=== PATIENT | male | born 2000 | race Caucasian/White ===

== ENCOUNTER 2022-01-15 10:30 | Outpatient (CLI) | payer OTHER | END 2022-01-15 10:31 | disposition EMS.NT | LOC: EMS 10:30 | DX: F41.9 Anxiety disorder, unspecified (principal) ==

== ENCOUNTER 2022-01-15 11:53 | Emergency (ER) | payer OTHER ==
[2022-01-15 12:09] VITALS: BP 120/78
--- NOTE | 2022-01-15 12:16 | ED Physician Documentation ---
PD HPI MHE - Stated complaint Stated Complaint: ANXIETY - Chief complaint Chief Complaint: MHE - History obtained from History obtained from: Patient, EMS - History of Present Illness Primary symptom: Anxiety Timing - onset: Today (he states he has general anxiety. He had some cannibis earlier and also took 40 mg of Ritalin from his friend. This made him much more anxious as it is taking effect.) Contributing factors: Substance abuse - drugs. No: Substance abuse - ETOH Similar symptoms before: Diagnosis (anxiety and PTSD.) Recently seen: Not recently seen Review of Systems Constitutional: denies: Fever, Chills, Fatigue Ears: denies: Ear pain Cardiac: reports: Chest pain / pressure, Palpitations. denies: Pedal edema, Calf pain Respiratory: denies: Dyspnea GI: denies: Abdominal Pain PD PAST MEDICAL HISTORY - Past Medical History Cardiovascular: None Respiratory: None Psych: Anxiety, Post traumatic stress disorder, Other (poor sleep) Musculoskeletal: None - Allergies Allergies/Adverse Reactions: Allergies Allergy/AdvReac Type Severity Reaction Status Date / Time No Known Drug Allergies Allergy Verified 01/15/22 12:09 PD ED PE NORMAL - Vitals Vital signs reviewed: Yes - General General: Alert and oriented X 3, Well developed/nourished, Other (seems shaky and anxious. ) - HEENT HEENT: Atraumatic, Moist mucous membranes - Neck Neck: Supple, no meningeal sign, Thyroid normal - Cardiac Cardiac: RRR, No murmur - Respiratory Respiratory: Clear bilaterally - Derm Derm: Normal color, Warm and dry - Extremities Extremities: No edema, No calf tenderness / cord - Neuro Neuro: Alert and oriented X 3, No motor deficit, Normal speech Results - Vitals Vitals: Oxygen O2 Source Room air - Labs Labs: Laboratory Tests 01/15/22 12:10 Urine Opiates Screen NEGATIVE Ur Oxycodone Screen NEGATIVE Urine Methadone Screen NEGATIVE Ur Propoxyphene Screen NEGATIVE Ur Barbiturates Screen NEGATIVE Ur Tricyclics Screen NEGATIVE Ur Phencyclidine Scrn NEGATIVE Ur Amphetamine Screen NEGATIVE U Methamphetamines Scrn NEGATIVE U Benzodiazepines Scrn NEGATIVE Urine Cocaine Screen NEGATIVE U Cannabinoids Screen POSITIVE H PD MEDICAL DECISION MAKING - ED course Complexity details: re-evaluated patient (he improved enough to want to go home. Feels more comfortable and requests discharge. ), considered differential (seems panic attack. He is leary of new meds. He declined meds and wanted to just wait to improve. ), d/w patient Departure - Departure Disposition: 01 Home, Self Care Clinical Impression: Anxiety, Anxiety attack Condition: Stable Record reviewed to determine appropriate education?: Yes Instructions: ED Panic Attack Follow-Up: [facility] [Provider Group] Comments: Stay well-hydrated. Of course avoiding nonprescribed/recreational medication can help reduce anxiety episodes. No excess alcohol. Regular diet and some regular daily exercise/activity can help with anxiety as well. Follow-up with counseling regarding biofeedback or feedback techniques to help with panic episodes. Follow-up with your primary care provider as well. Return as needed. Discharge Date/Time: 01/15/22 13:39
[2022-01-15] MEDS ORDERED: diazePAM 5 MG TABLET PO STA (12:42)
[2022-01-15 12:50] LABS: MUDS CUTOFF CONCENTRATIONS CUTOFF CONC BELOW:
[2022-01-15 13:03] LABS: AMPHETAMINE SCREEN,URINE NEGATIVE (NEGATIVE); BARBITURATE SCREEN,UR NEGATIVE (NEGATIVE); BENZODIAZEPINES SCREEN, URINE NEGATIVE (NEGATIVE); COCAINE SCREEN URINE NEGATIVE (NEGATIVE); METHADONE SCREEN, URINE NEGATIVE (NEGATIVE); METHAMPHETAMINES SCREEN, URINE NEGATIVE (NEGATIVE); OPIATE SCREEN, URINE NEGATIVE (NEGATIVE); OXYCODONE SCREEN, URINE NEGATIVE (NEGATIVE); PROPOXYPHENE SCREEN, URINE NEGATIVE (NEGATIVE); THC CANNABINOID SCREEN, URINE POSITIVE (NEGATIVE); TRICYCLIC ANTIDEPRESSANT,URINE NEGATIVE (NEGATIVE)
== END 2022-01-15 13:39 | disposition home or self-care (01) ==
LOC: ED 11:53
DX: F41.9 Anxiety disorder, unspecified (principal)
CPT/HCPCS: 80306; 99283; A9270

== ENCOUNTER 2022-02-06 05:18 | Emergency (ER) | payer OTHER ==
--- NOTE | 2022-02-06 05:51 | ED Physician Documentation ---
History of Present Illness - Stated complaint Stated Complaint: LOW HEART RATE - Chief complaint Chief Complaint: Cardiac - History obtained from History obtained from: Patient - Additonal information Additional information: Patient is a 21-year-old male with no significant past medical history presenting for evaluation of feeling that his heart was beating slow and possibly having a syncopal episode. Patient reports that he was laying in bed and felt that his heartbeat was really low. He did not count his pulse. He reports feeling dizzy and lightheaded but states he always feels dizzy and lig htheaded and thinks he may have briefly passed out but is unsure for how long. He denies headache, nausea, vomiting, diarrhea, chest pain, difficulty breathing. He currently feels okay and does not feel that his heart is beating slow.He reports having chest pain daily for the last year.Patient reports history of PTSD as well as other "mental problems" but is unable to get a timely appointment for his psychiatrist or PCP. Patient denies suicidal or homicidal thoughts.Patient does admit to drinking part of a for local last night as well as marijuana use. He denies excess caffeine use. Review of Systems Constitutional: denies: Fever Nose: denies: Congestion Throat: denies: Sore throat Cardiac: reports: Chest pain / pressure Respiratory: denies: Dyspnea, Cough GI: denies: Abdominal Pain : denies: Dysuria Musculoskeletal: denies: Back pain Neurologic: denies: Headache PD PAST MEDICAL HISTORY - Past Medical History Past Medical History: Yes Cardiovascular: None Respiratory: None Psych: Anxiety, Post traumatic stress disorder, Other Musculoskeletal: None - Past Surgical History Past Surgical History: No - Allergies Allergies/Adverse Reactions: Allergies Allergy/AdvReac Type Severity Reaction Status Date / Time No Known Drug Allergies Allergy Verified 02/06/22 05:25 - Social History Does the pt smoke?: No Smoking Status: Never smoker Does the pt drink ETOH?: No Substance Use and Type: Marijuana - Immunizations Immunizations: TDAP >10years/unknown PD ED PE NORMAL - General General: Alert and oriented X 3, No acute distress, Well developed/nourished - HEENT HEENT: Atraumatic, Moist mucous membranes - Neck Neck: Supple, no meningeal sign - Cardiac Cardiac: RRR, No murmur, Strong equal pulses - Respiratory Respiratory: No respiratory distress, Clear bilaterally - Abdomen Abdomen: Normal bowel sounds, Soft, Non tender, Non distended - Back Back: No spinal TTP - Derm Derm: Warm and dry - Extremities Extremities: No edema, No calf tenderness / cord - Neuro Neuro: Alert and oriented X 3, ironer hand 2-12 intact, No motor deficit, Normal speech Results - Vitals Vitals: Vital Signs - 24 hr 02/06/22 02/06/22 05:26 06:47 Temperature 36.4 C L 36.5 C Heart Rate 87 79 Respiratory 24 18 Rate Blood Pressure 129/86 H 122/81 H O2 Saturation 100 99 Oxygen O2 Source Room air - EKG (time done) 0522 Rate: Rate (enter#) (87) Rhythm: NSR Hope: Normal Intervals: Other (QTC 481) Ischemia: No: ST elevation c/w ischemia, ST depression, Hyperacute T waves Compare to prior EKG: Old EKG unavailable - Labs Labs: Laboratory Tests 02/06/22 02/06/22 05:42 05:42 WBC 7.8 RBC 4.77 Hgb 14.0 Hct 41.5 L MCV 87.0 MCH 29.4 MCHC 33.7 RDW 13.8 Plt Count 291 MPV 9.7 Neut # (Auto) 4.4 Lymph # (Auto) 2.4 Calloway # (Auto) 0.7 Eos # (Auto) 0.3 Baso # (Auto) 0.1 Absolute Nucleated RBC 0.00 Nucleated RBC % 0.0 Sodium 139 Potassium 3.3 L Chloride 102 Carbon Dioxide 29 Anion Gap 8.0 BUN 10 Creatinine 0.8 Estimated GFR (MDRD) 125 Glucose 98 Calcium 9.1 Magnesium 2.4 PD MEDICAL DECISION MAKING - ED course Complexity details: reviewed results, re-evaluated patient ED course: Pt evaluated after possible syncopal episode. EKG reassuring, labs reviewed. No concerning history for cardiac ischemia, seizure/stroke/ICH. No arrythmias noted on monitor. 0636 - Patient has been feeling well since being in the emergency department. Reviewed his labs, EKG and chest x-ray. He feels comfortable plan for discharge and will follow up with his PCP. Departure - Departure Disposition: 01 Home, Self Care Clinical Impression: Hypokalemia Syncope Qualifiers: Syncope type: unspecified Qualified Code(s): R55 - Syncope and collapse Condition: Stable Instructions: ED Fainting Unkn Cause Comments: You were evaluated after a fainting spell. Your EKG shows a Normal rhythm. Your labs were checked and your potassium was just the slightest bit low. You were given a potassium pill. Please make sure you are taking care of yourself by eating and drinking well. Your chest x-ray was clear with no signs of pneumonia or an enlarged heart. Is unclear as to what may have caused her symptoms but you are safe to be discharged from the emergency department at this time. Please call your primary care doctor today to arrange for close follow- up. I would recommend avoiding the use of any drugs or intoxicating agents Such as alcohol or marijuana or any illicit substances To make sure that they are not contributing or worsening any of your symptoms. Discharge Date/Time: 02/06/22 06:47
[2022-02-06 06:15] LABS: BASOPHILS # (AUTO) 0.1 10^3/uL (0.0-0.1); BASOPHILS % (AUTO) 0.8 %; EOSINOPHILS # (AUTO) 0.3 10^3/uL (0.0-0.7); EOSINOPHILS % (AUTO) 3.2 %; HCT - HEMATOCRIT 41.5 % (42.0-52.0); LYMPHOCYTES # (AUTO) 2.4 10^3/uL (1.5-3.5); LYMPHOCYTES % (AUTO) 30.1 %; MEAN CORPUSCULAR HEMOGLOBIN 29.4 pg (27.0-31.0); MEAN CORPUSCULAR HGB CONC 33.7 g/dL (32.0-36.0); MEAN PLATELET VOLUME 9.7 fL (7.4-11.4); MONOCYTES # (AUTO) 0.7 10^3/uL (0.0-1.0); NEUTROPHILS # (AUTO) 4.4 10^3/uL (1.5-6.6); NEUTROPHILS % (AUTO) 56.4 %; PLT - PLATELET COUNT 291 10^3/uL (130-450); RED BLOOD COUNT 4.77 10^6/uL (4.70-6.10); RED CELL DISTRIBUTION WIDTH 13.8 % (12.0-15.0); WHITE BLOOD COUNT 7.8 x10^3/uL (4.8-10.8)
[2022-02-06 06:20] LABS: CALCIUM 9.1 mg/dL (8.5-10.3); CREATININE 0.8 mg/dL (0.6-1.2); MAGNESIUM 2.4 mg/dL (1.7-2.8); POTASSIUM 3.3 mmol/L (3.5-5.0)
[2022-02-06] MEDS ORDERED: POTASSIUM CHLORIDE 20 MEQ TABLET PO STA (06:25)
[2022-02-06 06:48] VITALS: BP 122/81
--- NOTE | 2022-02-06 08:33 | XRAY Report ---
PROCEDURE: Chest 1 View X-Ray INDICATIONS: syncope TECHNIQUE: One view of the chest was acquired. COMPARISON: None FINDINGS: Surgical changes and devices: None. Lungs and pleura: No pleural effusions or pneumothorax. Lungs are clear. Mediastinum: Mediastinal contours appear normal. Heart size is normal. Bones and chest wall: No suspicious bony lesions. Overlying soft tissues appear unremarkable. IMPRESSION: 1. No acute cardiopulmonary disease. 2. Final interpretation concordant with preliminary report. Reviewed by: Devi Spears MD on 02/06/2022 8:31 AM PDT Approved by: Devi Spears MD on 02/06/2022 8:31 AM PDT Station ID: [id number]
== END 2022-02-06 06:47 | disposition home or self-care (01) ==
LOC: ED 05:18
DX: E87.6 Hypokalemia (principal); R55 Syncope and collapse
CPT/HCPCS: 36415; 71045; 80048; 83735; 85025; 93005; 99283; 99284; A9270

== ENCOUNTER 2022-02-10 00:59 | Outpatient (CLI) | payer OTHER | END 2022-02-10 01:00 | disposition critical access hospital (66) | LOC: EMS 00:59 | DX: F41.9 Anxiety disorder, unspecified (principal); R45.1 Restlessness and agitation; Z72.89 Other problems related to lifestyle | CPT/HCPCS: A0425; A0429 ==

== ENCOUNTER 2022-02-10 01:24 | Emergency (ER) | payer OTHER ==
--- NOTE | 2022-02-10 01:39 | ED Physician Documentation ---
History of Present Illness - Stated complaint Stated Complaint: ANXIETY - Chief complaint Chief Complaint: MHE - History obtained from History obtained from: Patient, EMS - History of Present Illness Timing: Today (no specific timeframe and some recurrent/ongoing aspect to his symptoms) Pain level max: 0 Pain level now: 0 Improved by: no ameliorating factors Worsened by: no exacerbating factors - Additonal information Additional information: BIBA. Patient c/o feeling anxious, feels as though he has a low heart rate, and c/o episodic lightheadedness both when standing as well as at rest. Regarding his heart rate, he has not checked specific heart rate (beats/minute) but says he intermittently checks his pulse and feels that it is lower than it should be. He tells me he is worried about alcohol withdrawal. He says he drinks , on average, half of a 750ml bottle of liquor daily for past few weeks/months. He denies SI/HI/AH/VH. He has never been in a detox/rehab facility. He was T+R for similar symptoms from this ED 02/06 and 01/15; on both occasions he declined medications and was discharged after reassuring tests and feeling better without specific intervention. He says his last drink of alcohol was approximately 4 PM Review of Systems Constitutional: denies: Fever, Chills, Sweats Cardiac: reports: Reviewed and negative Respiratory: reports: Reviewed and negative GI: reports: Reviewed and negative Neurologic: denies: Generalized weakness, Focal weakness, Numbness, Headache Psychiatric: reports: Anxiety. denies: Depressed, Suicidal, Hallucinations, Delusions PD PAST MEDICAL HISTORY - Past Medical History Cardiovascular: None Respiratory: None Psych: Anxiety, Post traumatic stress disorder, Other Musculoskeletal: None - Past Surgical History Past Surgical History: No - Present Medications Home Medications: Ambulatory Orders Medication Instructions Recorded Confirmed No Known Home Medications 02/10/22 02/10/22 - Allergies Allergies/Adverse Reactions: Allergies Allergy/AdvReac Type Severity Reaction Status Date / Time No Known Drug Allergies Allergy Verified 02/10/22 01:35 - Social History Does the pt smoke?: No Smoking Status: Never smoker Does the pt drink ETOH?: No - Immunizations Immunizations: TDAP >10years/unknown PD ED PE NORMAL - Vitals Vital signs reviewed: Yes - General General: Alert and oriented X 3, No acute distress, Well developed/nourished - HEENT HEENT: PERRL, EOMI, Moist mucous membranes - Cardiac Cardiac: RRR, No murmur - Respiratory Respiratory: No respiratory distress, Clear bilaterally - Abdomen Abdomen: Soft, Non tender - Neuro Neuro: Alert and oriented X 3 Eye Opening: Spontaneous Motor: Obeys Commands Verbal: Oriented GCS Score: 15 - Psych Psych: Normal mood, Normal affect Results - Vitals Vitals: Oxygen O2 Source Room air - Labs Labs: Laboratory Tests 02/10/22 02/10/22 02:45 02:45 WBC 6.4 RBC 5.00 Hgb 15.0 Hct 43.7 MCV 87.4 MCH 30.0 MCHC 34.3 RDW 14.3 Plt Count 243 MPV 9.2 Neut # (Auto) 4.1 Lymph # (Auto) 1.2 L Johnson # (Auto) 1.0 Eos # (Auto) 0.1 Baso # (Auto) 0.0 Absolute Nucleated RBC 0.00 Nucleated RBC % 0.0 Sodium 138 Potassium 4.1 Chloride 102 Carbon Dioxide 25 Anion Gap 11.0 BUN 13 Creatinine 0.8 Estimated GFR (MDRD) 125 Glucose 99 Calcium 9.5 Total Bilirubin 1.0 AST 21 ALT 18 Alkaline Phosphatase 44 Total Protein 7.8 Albumin 4.7 Globulin 3.1 Albumin/Globulin Ratio 1.5 Lipase 32 Ethyl Alcohol < 5.0 PD MEDICAL DECISION MAKING - ED course Complexity details: reviewed old records, reviewed results, re-evaluated patient, considered differential, d/w patient ED course: As with previous visits, patient is declining medications. I offered a benzodiazepine (lorazepam or diazepam) but he declines this. I explained that other medications that can help with depression/anxiety without addiction potential typically take days/weeks to start to have effect and thus are usually prescribed in outpatient setting; he indicates to me that he is not particularly interested in such medications, either. We then segued into discussion regarding his aim(s) of this ED visit and he reiterates his concern for withdrawal. I discussed option of [facility] recovery facility with him, and he seems to have some degree of interest in this option. I explained that an [id number] intake would need to occur between himself and the facility but that I would like to first get the results of basic lab tests. He subsequently slept while labs were pending. Labs show no abnormalities on CBC (except mildly low lymphocyte count), ER abdominal panel, and his ethanol level is undetectable. This is incongruous with patient's report of drinking liquor on a daily basis for weeks/months, as he has no symptoms/signs of alcohol withdrawal despite undetectable alcohol level. I reviewed this with him and he seems reassured that he is not in any danger of alcohol withdrawal at this time. He feels safe being discharged home. Advised to follow up with primary care provider to discuss options for counseling Departure - Departure Disposition: Home, Self Care Clinical Impression: Anxiety Condition: Good Instructions: ED Panic Attack Comments: Your blood tests are normal tonight. The blood tests did not detect any alcohol in your system and, given that at the time of discharge you are sleeping comfortably without having received any medications , you are not having alcohol withdrawal. You should follow up with your primary care provider to discuss your symptoms; you might benefit from medications for control of anxiety and/or depression. Discharge Date/Time: 02/10/22 05:48
[2022-02-10] MEDS ORDERED: SODIUM CHLORIDE 0.9% 1,000 ML IV STA (02:32)
[2022-02-10 02:52] LABS: BASOPHILS % (AUTO) 0.6 %; EOSINOPHILS # (AUTO) 0.1 10^3/uL (0.0-0.7); EOSINOPHILS % (AUTO) 1.1 %; HCT - HEMATOCRIT 43.7 % (42.0-52.0); LYMPHOCYTES # (AUTO) 1.2 10^3/uL (1.5-3.5); LYMPHOCYTES % (AUTO) 18.6 %; MEAN CORPUSCULAR HGB CONC 34.3 g/dL (32.0-36.0); MEAN CORPUSCULAR VOLUME 87.4 fL (80.0-94.0); MEAN PLATELET VOLUME 9.2 fL (7.4-11.4); MONOCYTES % (AUTO) 15.7 %; NEUTROPHILS # (AUTO) 4.1 10^3/uL (1.5-6.6); NEUTROPHILS % (AUTO) 63.8 %; PLT - PLATELET COUNT 243 10^3/uL (130-450); RED CELL DISTRIBUTION WIDTH 14.3 % (12.0-15.0); WHITE BLOOD COUNT 6.4 x10^3/uL (4.8-10.8)
[2022-02-10 03:08] LABS: ALBUMIN 4.7 g/dL (3.2-5.5); ALBUMIN/GLOBULIN RATIO 1.5 (1.0-2.2); ALKALINE PHOSPHATASE 44 IU/L (42-121); ALT ALANINE AMINOTRANSFERASE 18 IU/L (10-60); AST ASPARTATE AMINOTRANSFERASE 21 IU/L (10-42); BUN - BLOOD UREA NITROGEN 13 mg/dL (6-20); CALCIUM 9.5 mg/dL (8.5-10.3); CARBON DIOXIDE - CO2 25 mmol/L (21-32); CHLORIDE 102 mmol/L (101-111); CREATININE 0.8 mg/dL (0.6-1.2); ETOH - ETHANOL < 5.0 mg/dL; GFR - MDRD 125 (>89); GLUCOSE 99 mg/dL (70-100); LIPASE 32 U/L (22-51); POTASSIUM 4.1 mmol/L (3.5-5.0); SODIUM 138 mmol/L (135-145); TOTAL PROTEIN 7.8 g/dL (6.7-8.2)
[2022-02-10 05:40] VITALS: BP 114/69
== END 2022-02-10 05:48 | disposition home or self-care (01) ==
LOC: EDUNIT# → ED 01:24
DX: F41.9 Anxiety disorder, unspecified (principal)
CPT/HCPCS: 36415; 80053; 80320; 83690; 85025; 99282; 99283